=== PATIENT | male | born 1965 | race Caucasian/White ===

== ENCOUNTER 2016-07-05 22:02 | Emergency (ER) | payer SELFPAY ==
[~2016-07-05] VITALS: Ht 177.8 cm; Wt 85.0 kg
[2016-07-05 22:12] VITALS: Ht 177.8 cm; Wt 85.0 kg
[2016-07-06] MEDS ORDERED: ASPIRIN 81 MG TAB PO STA (00:01)
[2016-07-06 00:22] LABS: ADD SCAN DIFF NO
[2016-07-06 00:25] LABS: BASOPHIL # 0.1 10^3/ul (0.0-0.1); EOSINOPHILS # 0.2 10^3/ul (0.0-0.5); EOSINOPHILS % 2.6 % (0.0-7.0); HEMOGLOBIN 15.8 g/dl (14.0-18.0); MEAN CORPUSCULAR HEMOGLOBIN 29.8 pg (29.0-33.0); MEAN CORPUSCULAR HGB CONC 33.6 g/dl (32.0-37.0); MEAN CORPUSCULAR VOLUME 88.7 fl (82.0-101.0); MEAN PLATELET VOLUME 10.5 fl (7.4-10.4); MONOCYTE # 0.7 10^3/ul (0.3-0.9); MONOCYTES % 8.1 % (0.0-11.0); NEUTROPHIL # 4.4 10^3/ul (1.6-7.5); NEUTROPHILS % 52.2 % (39.0-77.0); PLATELET COUNT 222 10^3/UL (140-415); RED CELL DISTRIBUTION WIDTH 12.8 % (11.5-14.5); WHITE BLOOD COUNT 8.4 10^3/ul (4.8-10.8)
[2016-07-06 00:40] LABS: POTASSIUM 3.8 mmol/L (3.5-5.1)
[2016-07-06 00:42] LABS: CREATININE 0.72 mg/dl (0.61-1.24)
[2016-07-06 00:43] LABS: CALCIUM 8.7 mg/dl (8.4-10.2)
[2016-07-06 00:49] LABS: INR 0.91; PROTIME 12.3 Sec (12.2-14.2)
[2016-07-06 00:50] LABS: PARTIAL THROMBOPLASTIN TIME 32.7 Sec (25.0-35.0)
[2016-07-06 00:54] LABS: TROPONIN-I 0.018 ng/ml (0.00-0.12)
--- NOTE | 2016-07-06 01:38 | RADRPT ---
PROCEDURE: XR Chest. CLINICAL INDICATION: Chest pain TECHNIQUE: AP Portable chest. COMPARISON: No pertinent prior examinations were submitted for comparison. FINDINGS: The cardiomediastinal silhouette is normal. The lungs are clear. The osseous structures are unrema rkable. IMPRESSION: No acute findings. RPTAT: HIKT .Kailash Francois MD, MD Date Time Electronically viewed and signed by .Kailash Francois MD, MD on 07/06/2016 01:37 .T/
[2016-07-06 03:37] VITALS: BP 131/80; PULSE 55; RESP 16
--- NOTE | 2016-07-06 05:42 | ERD ---
ER Documentation Chief Complaint Date/Time DATE: 07/06/16 TIME: 05:35 Chief Complaint chest pain since this am HPI 51-year-old male with no significant past medical history presenting with left- sided chest pain. He states that he has been having left-sided chest pain for about a week that has been on and off. There is no exacerbating or alleviating factors. Today he started having chest pain that was going on all day long and was constant. Not worse with exertion. No associated dizziness, cough, nausea , vomiting, diaphoresis, or shortness of breath. When he takes a deep breath he feels better. No recent immobilization, or surgeries ROS All systems reviewed and are negative except as per history of present illness. PMhx/Soc Medical and Surgical Hx: pt denies Medical Hx, pt denies Surgical Hx Hx Neurological Disorder: No Hx Respiratory Disorders: No Hx Cardiac Disorders: No Hx Psychiatric Problems: No Hx Alcohol Use: No Hx Substance Use: No Hx Tobacco Use: No Smoking Status: Never smoker FmHx Family History: coronary disease (Father of a heart attack), No diabetes Physical Exam Vitals Vital Signs Date Time Temp Pulse Resp B/P Pulse Ox O2 Delivery O2 Flow Rate FiO2 07/06/16 03:37 55 16 131/80 99 Room Air 07/05/16 22:12 98.8 71 20 142/81 97 Physical Exam Const: Well-appearing, well-nourished, no distress Head: Atraumatic Eyes: Normal Conjunctiva ENT: Normal External Ears, Nose and Mouth. Neck: Full range of motion. No meningismus. Resp: Clear to auscultation bilaterally Cardio: Regular rate and rhythm, no murmurs Abd: Soft, non tender, non distended. Normal bowel sounds Skin: No petechiae or rashes Back: No midline or flank tenderness Ext: No cyanosis, or edema Neur: Awake and alert Psych: Normal Mood and Affect Result Diagram: 07/06/16 0015 07/06/16 0015 Results 24 hrs Laboratory Tests Test 07/06/16 00:15 07/06/16 04:16 Activated Partial Thromboplast Time 32.7Sec Anion Gap 17 Basophils # 0.110^3/ul Basophils % 1.0% Blood Urea Nitrogen 17mg/dl Calcium Level 8.7mg/dl Carbon Dioxide Level 25mmol/L Chloride Level 105mmol/L Creatinine 0.72mg/dl Eosinophils # 0.210^3/ul Eosinophils % 2.6% Glucose Level 98mg/dl Hematocrit 47.0% Hemoglobin 15.8g/dl INR International Normalized Ratio 0.91 Lymphocytes # 3.010^3/ul Lymphocytes % 36.0% Mean Corpuscular Hemoglobin 29.8pg Mean Corpuscular Hemoglobin Concent 33.6g/dl Mean Corpuscular Volume 88.7fl Mean Platelet Volume 10.5fl Monocytes # 0.710^3/ul Monocytes % 8.1% Neutrophils # 4.410^3/ul Neutrophils % 52.2% Nucleated Red Blood Cells # 0.010^3/ul Nucleated Red Blood Cells % 0.0/100WBC Platelet Count 64867^3/UL Potassium Level 3.8mmol/L Prothrombin Time 12.3Sec Prothrombin Time Ratio 1.0 Red Blood Count 5.3010^6/ul Red Cell Distribution Width 12.8% Sodium Level 143mmol/L Troponin I 0.018ng/ml < 0.012ng/ml White Blood Count 8.410^3/ul Current Medications Medications (Trade) Dose Ordered Sig/García Route PRN Reason Start Time Stop Time Status Last Admin Dose Admin Aspirin (Aspirin) 162 mg ONCE STAT PO 07/06/16 00:01 07/06/16 00:08 DC 07/06/16 00:30 Procedures/MDM EKG #1: Rate/Rhythm: Normal sinus rhythm QRS, ST, T-waves: No changes consistent w/ acute ischemia Impression: No evidence of ischemia or arrhythmia EKG #2: Rate/Rhythm: Normal Sinus Rhythm with sinus arrhythmia QRS, ST, T-waves: No changes consistent w/ acute ischemia Impression: No evidence of ischemia or significant arrhythmia Chest x-ray showed no acute abnormalities Labs were reviewed and were unremarkable The patient presents with chest pain. Vitals are stable. I considered pulmonary embolism, aortic dissection, pneumothorax among other diagnoses. Evaluation for acute coronary syndrome was performed. The HEART score was utilized for risk stratification and found to be 1. Repeat EKG and troponin @ 3 hours were unchanged. Based on this evaluation the patient's risk of major adverse cardiac events is <1%. Shared decision making occurred with patient and the decision has been made to discharge the patient for outpatient evaluation and functional study within 72 hours. Patient instructed to arrange follow up with PCP in the next 2 days and return to the ED for any new or worsening symptoms. Patient's blood pressure was elevated (>120/80) but appears stable without evidence of hypertension emergency or urgency. The patient was counseled about the risks of hypertension and urged to pursue outpatient monitoring and therapy within a week with their primary care physician. Departure Diagnosis: Primary Impression: Chest pain Chest pain type: unspecified Qualified Code: R07.9 - Chest pain, unspecified type Condition: Stable Patient Instructions: Chest Pain, Uncertain Cause [facility]: [facility] Usted se moreno hecho un examen mdico de control que le indica que no est en shahzad condicin que requiera tratamiento urgente en el Departamento de Emergencia. Un estudio ms profundo y el tratamiento de garibay condicin pueden esperar sin ningn riesgo hasta que usted sea atendida/o en el consultorio de garibay mdico o shahzad cl chanel. Es responsabilidad suya arreglar shahzad alysa para el seguimiento del sarai. MANEJO DE CONDICIONES NO URGENTES EN EL FUTURO 1) Si usted tiene un mdico de atencin primaria: Usted debera llamar a garibay mdico de atencin primaria antes de venir al departamento de emergencia. Despus de las horas de consultorio, garibay doctor o garibay asociado/a est disponible por telfono. El mdico o enfermero de artur en el servicio telefnico puede asesorarle por migue medio para atender el problema, o sarai contrario se puede programar shahzad alysa. 2) Si usted no tiene un mdico de atencin primaria: Llame al mdico o clnica de referencia que aparece abajo jeff las horas de consultorio para hacer shahzad alysa para que le vean. CLINICAS: [facility] 934 [phone] [address] [facility] 035 [phone] [address] [facility] 373 [phone] [address] [facility] [phone] [address] [facility]. [facility] 842 [phone] [address] [facility]. [phone] [address] [facility]. [facility] () Usted se moreno hecho un examen mdico de control que le indica que no est en shahzad condicin que requiera tratamiento urgente en el Departamento de Emergencia. Un estudio ms profundo y el tratamiento de garibay condicin pueden esperar sin ningn riesgo hasta que usted sea atendida/o en el consultorio de garibay mdico o shahzad cl chanel. Es responsabilidad suya arreglar shahzad alysa para el seguimiento del sarai. MANEJO DE CONDICIONES NO URGENTES EN EL FUTURO 1) Si usted tiene un mdico de atencin primaria: Usted debera llamar a garibay mdico de atencin primaria antes de venir al departamento de emergencia. Despus de las horas de consultorio, garibay doctor o garibay asociado/a est disponible por telfono. El mdico o enfermero de artur en el servicio telefnico puede asesorarle por migue medio para atender el problema, o sarai contrario se puede programar shahzad alysa. 2) Si usted no tiene un mdico de atencin primaria: Llame al mdico o condado institucions de referencia que aparece abajo jeff las horas de consultorio para hacer shahzad alysa para que le vean. SI USTED NO PUEDE PAGAR PARA CHEY UN MEDICO puede ir a: [facility] [address] [place] [address] [facility] [address] [place] [address] [facility] [address] [place] [address] [address] [address] [place] [address] Additional Instructions: Es importante que usted lo ca un mdico de cabecera en los prximos 2-3 wills. Regrese por cualquier empeoramiento de los sntomas. CYNTHIA NAM MD Jul 06, 2016 05:42
== END 2016-07-06 05:59 | disposition home or self-care (01) ==
LOC: E/R 22:02
DX: R07.9 Chest pain, unspecified (principal)
CPT/HCPCS: 36415; 71010; 80048; 84484; 85025; 85610; 85730; 93005